=== PATIENT | female | born 1975 | race Caucasian/White ===

== ENCOUNTER 2017-05-26 16:07 | Emergency (ER) | payer OTHER ==
[~2017-05-26] VITALS: Ht 149.9 cm; Wt 47.7 kg
[2017-05-26 16:12] VITALS: BP 95/64; TEMP 98.6
[2017-05-26] MEDS ORDERED: PREDNISONE10 MG PO (16:18)
[2017-05-26] MEDS ORDERED: VALIUM 2MG T2 MG/TAB PO (17:32)
[2017-05-26 17:40] VITALS: PULSE 76
== END 2017-05-26 17:40 | disposition home or self-care (01) ==
LOC: COL.ER 16:07
DX: S09.90XA Unspecified injury of head, initial encounter (principal); S16.1XXA Strain of muscle, fascia and tendon at neck level, initial encounter; Z87.891 Personal history of nicotine dependence; V43.52XA Car driver injured in collision with other type car in traffic accident, initial encounter

== ENCOUNTER → 2017-06-02 | Outpatient (CLI) | payer BC ==
[~2017-06-02] MED LIST: PREDNISONE10 MG PO; VALIUM 2MG T2 MG/TAB PO
== END ==
LOC: MC.RAD 15:15
DX: Z12.31 Encounter for screening mammogram for malignant neoplasm of breast (principal)

== ENCOUNTER → 2017-06-08 | Outpatient (CLI) | payer BC | LOC: MC.RAD 13:00 | DX: R92.2 Inconclusive mammogram (principal) ==